=== PATIENT | female | born 1950 | race Caucasian/White ===

== ENCOUNTER 2017-02-13 11:13 | Day surgery (SDC) | payer MEDICARE, BC ==
[~2017-02-13] VITALS: Ht 162.6 cm; Wt 59.0 kg
[~2017-02-13 11:13] MED LIST: ACETAMINOPHEN325 MG PO; HYDROCODON-ACE1 EAC7 PO
[2017-02-13 14:53] VITALS: BP 120/73; Ht 162.6 cm; Wt 59.0 kg
[2017-02-13 15:03] LABS: HEMATOCRIT 39.7 % (36.0-48.0); MCH 27.9 pg (26.0-34.0); MCHC 32.7 g/dL (31.0-37.0); MCV 85.2 fL (80.0-100.0); MEAN PLATELET VOLUME 9.9 fL (7.4-10.4); RBC 4.66 10x6/uL (4.00-5.40); RDW 12.8 % (11.5-14.5); WBC 6.8 10x3/uL (4.8-10.8)
[2017-02-13] MEDS ORDERED: HYDROCODONE-APA1 TAB PO (18:55)
--- NOTE | 2017-02-13 19:15 | NUR ---
1858 PATIENT BYPASSED RECOVERY FROM RT WRIST ORIF. DRESSING TO RT WRIST C/D/I NO BLEEDING ARM ELEVATED AND ICED. CAPILLLARY REFILL TO NAIL BEDS IMMEDIATE.
--- NOTE | 2017-02-13 20:30 | NUR ---
192 RTARM ELEVATED AND ICED. SLIGHT HEADACHE BUT TOOK OWN TYLENOL BEFORE GETTING MED.ARM IN SLING, GOOD CAPILLARY REFILL TO NAIL BEDS.
--- NOTE | 2017-02-13 20:33 | NUR ---
1957 IV DCD CATHETER INTACT. WENT OVER DISCHARGE INSTRUCTIONS AND VERBALLY UNDERSTANDS. ASSISTED WITH DRESSING PATIENT AND UP AND VOIDED ARM IN SLING ICED AND ELEVATED.
--- NOTE | 2017-02-13 20:36 | NUR ---
2020 ASSISTED IN W/C TO CAR WITH TO HOME.
--- NOTE | 2017-02-19 09:04 | OP ---
PATIENT NAME: SALEEM DE LA CRUZ MEDICAL RECORD: [id number] :52 LOCATION:[facility] ADMISSION DATE: SURGEON: ELVIA AUGUSTINE MD DATE OF OPERATION: 02/13/2017 PREOPERATIVE DIAGNOSIS: Intraarticular displaced distal radius fracture. POSTOPERATIVE DIAGNOSIS: Intraarticular displaced distal radius fracture. PROCEDURE: Open reduction internal fixation intra-articular right distal radius fracture. SURGEON: Elvia Augustine MD ANESTHESIA: General. INTRAOPERATIVE COMPLICATIONS: None. SUMMARY OF PATHOLOGIC FINDINGS: The patient had a radial styloid and ulnar compartment split, this was reducible and was held nicely with the Sandor VariAx volar plate. OPERATIVE SUMMARY IN DETAIL: After obtaining the appropriate preoperative orthopedic surgery consent as well as anesthetic consultation, evaluation, and clearance, the patient was brought to the operating room and placed on the operating table in supine position. After general laryngeal mask was administered, tourniquet was placed about the proximal aspect of the right lower extremity. Right lower extremity was then prepped and draped in routine sterile fashion. The arm was elevated and exsanguinated, tourniquet inflated to 250 mmHg. Routine volar approach of Jason was utilized starting with a carpal tunnel release and curvilinear FCR was used as landmark. Median nerve was identified and released in its entirety, taken down at the pronator quadratus. This was removed from the volar aspect of the distal radius. Reduction maneuver was performed. All intra fracture hematoma was removed. The plate was then positioned under fluoroscopy, held in place with 2 provisional K wires. Serial and sequential drill and fill was then done with a combination of both compression and locking screws. This was all done under fluoroscopic guidance. Final AP and lateral radiographs were taken and submitted for radiologist review. The wound was copiously irrigated and closed with 2-0 Vicryl followed by 4-0 Prolene in a running fashion. Sterile dressings were applied. A volar splint was applied. The patient was awakened, taken to the recovery room in stable condition. All final needle and sponge counts were correct. TRANSINT:[id number] Voice Confirmation ID: [id number] DOCUMENT ID: [id number] ELVIA AUGUSTINE MD at 0904 CC: [id number] DICTATION DATE: 02/13/17 184 MARKET RESEARCH EXECUTIVE: 02/13/17 2203 DEP SDC 02/13/17 [facility] [address] [facility] [place] [address]
== END 2017-02-13 20:20 | disposition home or self-care (01) ==
LOC: D.OPS 11:13 → D.PAN 15:00 → D.OPS 15:00
PROVIDERS: Anesthesiology
DX: S52.501A Unspecified fracture of the lower end of right radius, initial encounter for closed fracture (principal); Z01.812 Encounter for preprocedural laboratory examination